=== PATIENT | male | born 1960 | race Caucasian/White ===

== ENCOUNTER 2016-12-10 00:36 | Inpatient (IN) | payer OTHER ==
[~2016-12-10] VITALS: Ht 162.6 cm; Wt 56.4 kg
--- NOTE | 2016-12-10 00:40 | NUR ---
55YO MALE TO RM 2 VIA AMB FROM HOME W/CO SOB X 1 WEEK. STATES NO RELIEF FROM HIS INHALER. UPON EMS ARRIVAL O2 SAT = 80'S. ENROUTE TO ER, JPT WAS GIVEN 1 DUONEB AND 125MG IV SOLUMEDROL.
--- NOTE | 2016-12-10 00:41 | ED DYSPNEA/ASTHMA COMPLAINT ---
History of Present Illness General Chief Complaint: Dyspnea (COPD, CHF, Other) Stated Complaint: DIFF BREATHING Source: patient Exam Limitations: no limitations Vital Signs & Intake/Output Vital Signs & Intake/Output Vital Signs Date Time Temp Pulse Resp B/P B/P Pulse O2 O2 Flow FiO2 Mean Ox Delivery Rate 12/10 0059 96 Nasal 4.0L Cannula 12/10 0045 96 Aerosol 6.0L Mask 12/10 0040 95.6 94 16 130/87 96 Aerosol 6.0L Mask Allergies Coded Allergies: iodine (Severe, HIVES 12/10/16) Penicillins (Intermediate, RASH 12/10/16) Reconcile Medications Albuterol Sulfate (Proventil Hfa) 90 MCG HFA.AER.AD 2 PUF INH Q4 ASTHMA ( Reported) Triage Nurses Notes Reviewed? yes Onset: Gradual Duration: day(s):, getting worse Timing: recent history Severity: moderate Activities at Onset: none Prior Episodes/Possible Cause: no prior episodes Modifying Factors: Improves With: rest. Associated Symptoms: cough, wheezing HPI: 55yo gentleman h/o copd, h/o cigarette smoking presents with cough, wheezing, productive of phlegm, "that I can't get up," for the past 7 days. He states that it was worse today and called 911. The medics found him hypoxic to the 80's, tripoding, breathless. He received a duo neb and solumedrol 125mg iv in the field. Past History Travel History Traveled to [place] past 21 day No Medical History Any Pertinent Medical History? see below for history Respiratory: asthma, COPD Surgical History Surgical History: none Psychosocial History What is your primary language Nigerian Family History Hx Contributory? No Review of Systems Review of Systems Constitutional: Reports: no symptoms. EENTM: Reports: no symptoms. Respiratory: Reports: no symptoms. Cardiovascular: Reports: no symptoms. GI: Reports: no symptoms. Genitourinary: Reports: no symptoms. Musculoskeletal: Reports: no symptoms. Skin: Reports: no symptoms. Neurological/Psychological: Reports: no symptoms. Hematologic/Endocrine: Reports: no symptoms. Immunologic/Allergic: Reports: no symptoms. All Other Systems: Reviewed and Negative Physical Exam Physical Exam General Appearance: well developed/nourished, mild distress, moderate distress Head: atraumatic, normal appearance Eyes: Bilateral: normal appearance. Ears, Nose, Throat: normal pharynx, normal ENT inspection Neck: normal inspection, supple, full range of motion Respiratory: wheezing, respiratory distress Cardiovascular: regular rate/rhythm Gastrointestinal: normal bowel sounds, soft, non-tender Extremities: normal inspection Neurologic/Psych: no motor/sensory deficits, awake, alert, oriented x 3 Skin: intact, normal color, warm/dry Core Measures ACS in differential dx? No Severe Sepsis Present: No Septic Shock Present: No Progress Differential Diagnosis: asthma, bronchitis, CHF, COPD, pneumonia Plan of Care: Orders Procedure Date/time Status Nothing by Mouth 12/10 B Active Saline Lock 12/10 209 Active Misc Message 12/10 209 Active ED Holding Orders 12/10 209 Active Vital Signs 12/10 209 Active Code Status 12/10 209 Active Admit to inpatient 12/10 208 Active BLOOD CULTURE 12/10 114 Active BLOOD CULTURE 12/11 111 Active TROPONIN LEVEL 12/10 40 Complete COMPREHENSIVE METABOLIC PANEL 12/10 40 Complete CBC WITHOUT DIFFERENTIAL 12/10 40 Complete EKG 12/10 40 Active Laboratory Tests 12/10/16 0040: Anion Gap 13, Estimated GFR > 60, BUN/Creatinine Ratio 20.0, Glucose 94, Calcium 9.6, Total Bilirubin 0.4, AST 16 L, ALT 31, Alkaline Phosphatase 55, Troponin I < 0.01, Total Protein 7.1, Albumin 4.6, Globulin 2.5, Albumin/Globulin Ratio 1.8 , CBC w Diff NO MAN DIFF REQ, RBC 5.33, MCV 91.4, MCH 31.2 H, RDW 13.3, MPV 8.1 , Gran % 50.1, Lymphocytes % 39.2, Monocytes % 6.0, Eosinophils % 4.0, Basophils % 0.7, Absolute Granulocytes 5.5, Absolute Lymphocytes 4.3 H, Absolute Monocytes 0.7 H, Absolute Eosinophils 0.4, Absolute Basophils 0.1, PUBS MCHC 34.1 Microbiology 12/10 49 BLOOD: Blood Culture - RECD 12/11 39 BLOOD: Blood Culture - RECD Diagnostic Imaging: Viewed by Me: Radiology Read. Discussed w/RAD: Radiology Read. Radiology Impression: cxr... hazy right mid lung opacity... suspicious for pneuomnia... full report below. Initial ED EKG: normal axis, normal intervals, normal p-waves, normal QRS complex, normal sinus rhythm Comments: PATIENT: ANU YAN PRESENT AGE: 55 PATIENT ACCOUNT NO: [id number] : 62 LOCATION: [facility] ([facility] ORDERING PHYSICIAN: OLIVA DUPONT MD SERVICE DATE: 12/10/16 EXAM TYPE: RAD - XRY-PORTABLE CHEST XRAY EXAMINATION: XR PORTABLE CHEST CLINICAL INFORMATION: Dyspnea COMPARISON: 08/09/2013 TECHNIQUE: Portable frontal view of the chest was obtained. FINDINGS: The lungs are well expanded. No edema or effusion. Hazy opacity at the periphery of the right midlung. No pneumothorax. The cardiomediastinal silhouette is within normal limits. No acute osseous abnormality. IMPRESSION: Hazy peripheral right midlung opacity suspicious for pneumonia. Follow-up to resolution to exclude an underlying mass. DICTATED BY: PAVITHRA TELLEZ MD DATE/TIME DICTATED:12/10/16115 JOINER:BROOK DATE/TIME TRANSCRIBED:12/10/16115 CONFIDENTIAL, DO NOT COPY WITHOUT APPROPRIATE AUTHORIZATION. <Electronically signed in Other Vendor System> SIGNED BY: ROSALINDA JARAMILLO,PAVITHRA 12/10 0120 Departure Departure Disposition: STILL A PATIENT Condition: Stable Clinical Impression Primary Impression: COPD exacerbation Secondary Impressions: Pneumonia, Sepsis Referrals: PATIENT HAS NO PRIMARY CARE DR (PCP/Family) Departure Forms: Customer Survey General Discharge Information Admission Note Spoke With: ARACELI JARAMILLO,[facility] Documentation of Exam: Documentation of any treatments & extenuating circumstances including Concerns Regarding Discharge (functional status, medication knowledge or non-compliance, living conditions, etc.) that warrant an admission rather than observation: pt hypoxic to 80's, with tachypnea, tripoding in the field, meets criteria for sepsis. pt merits iv abx, iv steroids, nebs, 02 support. pt received solumedrol iv in the field. Critical Care Note Critical Care Note Critical Care Time: 30-74 min
--- NOTE | 2016-12-10 00:50 | NUR ---
RESP TX GIVEN BY RT
--- NOTE | 2016-12-10 01:05 | NUR ---
AFTER COMPLETION OF RESPTX PT PLACED ON 4L NASAL O2
[2016-12-10] MEDS ORDERED: PROVENTIL HFA6.7 GM INH (01:07)
[2016-12-10 01:20] LABS: ABSOLUTE BASOPHIL COUNT 0.1 /CUMM (0.0-0.2); ABSOLUTE EOSINOPHIL COUNT 0.4 /CUMM (0.0-0.7); ABSOLUTE GRANULOCYTE CT 5.5 /CUMM (1.4-6.5); ABSOLUTE MONOCYTE COUNT 0.7 /CUMM (0.10-0.60); BASOPHIL % 0.7 % (0.0-2.0); GRANULOCYTE % 50.1 % (42.2-75.2); HEMATOCRIT 48.8 % (42-52); MEAN CORPUSCULAR HGB 31.2 PG (27.0-31.0); MEAN CORPUSCULAR HGB CONC 34.1 G/DL (33.0-37.0); MEAN CORPUSCULAR VOLUME 91.4 FL (80.0-94.0); MEAN PLATELET VOLUME 8.1 FL (7.4-10.4); PLATELET COUNT 282 /CUMM (130-400); RBC DISTRIBUTION WIDTH 13.3 % (11.5-14.5); RED BLOOD CELL CT 5.33 /CUMM (4.70-6.10); WHITE BLOOD CELL COUNT 11.1 /CUMM (4.8-10.8)
--- NOTE | 2016-12-10 01:20 | RADIOLOGY REPORT ---
EXAMINATION: XR PORTABLE CHEST CLINICAL INFORMATION: Dyspnea COMPARISON: 08/09/2013 TECHNIQUE: Portable frontal view of the chest was obtained. FINDINGS: The lungs are well expanded. No edema or effusion. Hazy opacity at the periphery of the right midlung. No pneumothorax. The cardiomediastinal silhouette is within normal limits. No acute osseous abnormality. IMPRESSION: Hazy peripheral right midlung opacity suspicious for pneumonia. Follow-up to resolution to exclude an underlying mass.
[2016-12-10 01:21] LABS: ABSOLUTE LYMPH COUNT 4.3 /CUMM (1.2-3.4)
--- NOTE | 2016-12-10 02:40 | NUR ---
O2 SAT ON 4L = 97 O2 DECREASED TO 3L AT THIS TIME.
--- NOTE | 2016-12-10 03:03 | NUR ---
MOODY CORONADOF HERE TO [facility]
--- NOTE | 2016-12-10 03:25 | Admission Certification ---
Admission Certification Certification Statement - As attending physician, I certify that at the time of - admission, based on clinical presentation, severity of - symptoms, need for further diagnostic testing and - therapeutic interventions, and risk of adverse outcomes - without in-hospital treatment, in my clinical assessment, - this patient requires an acute hospital stay for a minimum - of two nights or longer. I have also considered psychsocial - factors such as support system, advanced age, financial - issues, cognitive issues, and failed out-patient treatments, - past re-admission history, safety of patient, and lack of - compliance as applicable. Specific rationale supporting this admission is: Acute hypoxic respiratory failure, COPD exacerbation, community acquired pneumonia.
--- NOTE | 2016-12-10 03:29 | NUR ---
BED 173
--- NOTE | 2016-12-10 03:42 | History & Physical ---
SHERYL BECERRIL 12/10/16 0342: General Information and HPI History of Present Illness: Mr. Griffith is a 55-year-old gentleman with significant past medical history of emphysema [diagnosed 4 years ago at a walk-in clinic] not on any medications, no home oxygen, who presents to [facility] emergency department with complaints of dyspnea. He states that it started yesterday and progressively worsened in the evening at which point he decided to come to the emergency department. He states this is similar to his previous exacerbation approximately 4 years ago , which woke him up from his sleep. He states he is not seen a doctor in many years. He does not have a primary care physician. At lab of interview, the patient had received TRC/nebs and steroids/ceftriaxone/ azithromycin. He states he felt much better. His O2 requirement decreased significantly. In addition to his dyspnea, he complained of a dry cough, however states that this has been going on for one year on and off. He also admits to 1 week of itchy eyes as well as runny nose. Social history positive for half a pack smoking history 20 years. No alcohol. No illicit drug use. Family history, emphysema and his mom passed at 72 years old. Blood clot secondary to replacement in his father [ at 48]. He is allergic to penicillin and develops hives with exposure. Vitals on admission temperature 95.6, pulse rate 94, respiratory rate 16, 130/87 , saturating 96% on 6 L of oxygen via nasal cannula. Physical exam positive for age-appropriate appearing man lying comfortably in bed in no acute distress. HEENT exam positive for dry mucous membranes. Heart exam unremarkable. Chest exam positive for slightly decreased air entry bilaterally. No wheezes, rhonchi or rales appreciated. Abdominal and lower extremity exam benign. CBC revealed white blood cell count of 11.1, H&H 16.6/48.8, platelets 282. BEP unremarkable. LFTs within normal limits. Troponin <0.01. Chest x-ray did reveal a right midlung opacity, questionable underlying mass. EKG revealed sinus rhythm at 95 bpm, UT interval 176, UTC 453, axis at +60. Allergies/Medications Allergies: Coded Allergies: iodine (Severe, HIVES 12/10/16) Penicillins (Intermediate, RASH 12/10/16) Home Med list Albuterol Sulfate (Proventil Hfa) 90 MCG HFA.AER.AD 2 PUF INH Q4 ASTHMA ( Reported) Past History Travel History Traveled to [place] past 21 day No Medical History Respiratory: COPD Surgical History Surgical History: none Past Family/Social History Family History Relations & Conditions if any MOTHER (FATHER ( at 42, knee replacement complicated by blood clot.). Psychosocial History Where do you live? Home Who Do You Live With? brother Smoking Status: Current Everyday Smoker (1/2 PPD) ETOH Use: denies use Illicit Drug Use: denies illicit drug use Functional Ability ADLs Independent: dressing, eating, toileting, bathing. Ambulation: independent IADLs Independent: shopping, housework, finances, food prep, telephone, transportation , medication admin. Review of Systems Review of Systems Constitutional: Reports: see HPI. Cardiovascular: Denies: chest pain, edema, orthopena, palpitations. Respiratory: Reports: cough, short of breath. Denies: hemoptysis, orthopnea, sputum production, stridor, wheezing. GI: Denies: abdominal pain, bloating, constipation, diarrhea, bloody stool, vomiting. Genitourinary: Denies: discharge, dysuria, frequency, hematuria. Immunologic/Allergic: Denies: no symptoms, splenectomy, HIV/AIDS, lymphadenopathy. Exam & Diagnostic Data Last 24 Hrs of Vital Signs/I&O Vital Signs Date Time Temp Pulse Resp B/P B/P Pulse O2 O2 Flow FiO2 Mean Ox Delivery Rate 12/10 0240 84 20 126/72 94 Nasal 3.0L Cannula 12/10 0059 96 Nasal 4.0L Cannula 12/10 0045 96 Aerosol 6.0L Mask 12/10 0040 95.6 94 16 130/87 96 Aerosol 6.0L Mask Intake & Output 12/10 0800 12/10 0000 12/09 1600 Intake Total 350 Output Total Balance 350 Intake, IV 350 Patient 72.575 kg Weight Physical Exam General Appearance Alert, Oriented X3, Cooperative, No Acute Distress Skin Temp/Moisture Exam: Warm/Dry HEENT Atraumatic, PERRLA, dry mucus membranes Cardiovascular Regular Rate, Normal S1, Normal S2, No Murmurs Lungs Clear to Auscultation, decreased air entry Abdomen Normal Bowel Sounds, Soft, No Tenderness Extremities No Clubbing, No Cyanosis, No Edema, No Tenderness/Swelling Diagnostic Data EKG Results SR @ 95, UT 175ms, QTc 453 ms. [place] +60 CXR Results R midlung opacity - ?underlying mass. Assessment/Plan Assessment: Mr. Griffith is a 55-year-old gentleman with significant past medical history of emphysema [diagnosed 4 years ago at a walk-in clinic] not on any medications, no home oxygen, who presents to [facility] emergency department with complaints of dyspnea. CBC revealed white blood cell count of 11.1, H&H 16.6/48.8, platelets 282. BEP unremarkable. LFTs within normal limits. Troponin <0.01. Chest x-ray did reveal a right midlung opacity, questionable underlying mass. EKG revealed sinus rhythm at 95 bpm, UT interval 176, UTC 453, axis at +60. Problem list assessment and plan Acute on chronic COPD exacerbation vs CAP. * Admit to for IV steroids and IV ABx * CURB 65 score = 0 but patient did receive IV Solu-Medrol en route to the emergency department. Pt recieved Combivent, Zithromax and ceftriaxone in the emergency department. * We will also get urinary strep/legionella antigens as well as LRC and blood Cx * We will continue IV Solu-Medrol 40 mg every 8 hours, as well as 1 g of ceftriaxone daily as well as 500 mg of azithromycin daily * The patient does not improve, spikes a fever consider CAT scan of the chest as he does have a significant smoking history and this could be postobstructive pneumonia. Regular diet Full code lovenox for dvt ppx pain path As Ranked By This Provider Problem List: 1. Pneumonia 2. COPD exacerbation Core Measures/Miscellaneous Acute Coronary Syndrome ACS Diagnosis: No Cerebrovascular Accident CVA/TIA Diagnosis: No Congestive Heart Failure CHF Diagnosis: No Venous Thromboembolism VTE Risk Factors: Age > 40 [facility] prophylaxis d/t: No contraindications No VTE Pharm Prophylaxis d/t: No contraindications VTE Diagnosis: No VTE Type: NONE VTE Confirmed by (Test): NONE Severe Sepsis Severe Sepsis Present: No Septic Shock Septic Shock Present: No Miscellaneous Documentation Attending Case Discussed With: SONIYA CHARLES MD Primary Care Physician: PATIENT HAS NO PRIMARY CARE DR Patient sees these Specialists na Level of Patient Care: General Medicine RYAN CHARLES MD 12/10/16 0446: Attending MD Review Statement Attending Statement Attending MD Statement: examined this patient, discuss w/resident/PA/REWRITE EDITOR, agreed w/resident/PA/REWRITE EDITOR Attending Assessment/Plan: 55 yo M current everyday smoker, with possible underlying COPD (no definitive diagnosis), is brought in c/o progressively worse dyspnea, chronic intermittent cough with inability to bring up phlegm and wheezing. This was preceded by allergies/ rhinorrhea/ itchy eyes in the last week. Denies fever/chills. Reports good appetite, no weight loss. Medics found him to be hypoxic to 80's, tripoding , tachypneic. He received duoneb and solumedrol by EMS. Patient reports being told that he has emphysema about 4 yrs ago when he was seen at a walk in clinic. Vitals: afebrile, HR 94, BP 130/87, sats 96% on 6L. Exam: AAO, mild respiratory distress, able to speak in full sentences, unkempt male. Dry mucous membranes. Chest b/l reduced air entry, scattered wheeze, no rhonchi. Heart S1S2 regular. Abd soft, NT. Labs: WBC 11.1, trop neg. CXR: hazy peripheral right midlung opacity suspicious for pneumonia. EKG: SR. 1. Acute hypoxic respiratory failure, COPD exacerbation and community acquired pneumonia. GM admit, TRC nebs, sputum and blood culture, IV steroids, mucinex BID, continue ceftriaxone and azithro. Gentle IV hydration. Taper O2 to keep sats > 92%. If his symptoms do not improve, he may benefit from a CT chest to assess for lung nodules/ mass and eventual Pulm eval for outpatient PFTs, follow up. Smoking cessation counseling, nicotine patch. DVT ppx Lovenox. Full code.
[2016-12-10 04:34] VITALS: BP 118/74
--- NOTE | 2016-12-10 07:36 | PN- Housestaff ---
Subjective Follow-up For: - TIA Review of Systems Constitutional: Reports: see HPI. Objective Last 24 Hrs of Vital Signs/I&O Vital Signs Date Time Temp Pulse Resp B/P B/P Pulse O2 O2 Flow FiO2 Mean Ox Delivery Rate 12/10 0434 98.0 78 20 118/74 91 Nasal 2.0L Cannula 12/10 0240 84 20 126/72 94 Nasal 3.0L Cannula 12/10 0059 96 Nasal 4.0L Cannula 12/10 0045 96 Aerosol 6.0L Mask 12/10 0040 95.6 94 16 130/87 96 Aerosol 6.0L Mask Intake & Output 12/10 0800 12/10 0000 12/09 1600 Intake Total 350 Output Total 300 Balance 50 Intake, IV 350 Output, Urine 300 Patient 160 lb Weight Physical Exam General Appearance: No Acute Distress
[2016-12-10 08:31] VITALS: BP 94/64
[2016-12-10 09:03] LABS: ABSOLUTE BASOPHIL COUNT 0 /CUMM (0.0-0.2); ABSOLUTE EOSINOPHIL COUNT 0 /CUMM (0.0-0.7); ABSOLUTE GRANULOCYTE CT 9.2 /CUMM (1.4-6.5); ABSOLUTE LYMPH COUNT 0.7 /CUMM (1.2-3.4); ABSOLUTE MONOCYTE COUNT 0 /CUMM (0.10-0.60); BASOPHIL % 0 % (0.0-2.0); EOSINOPHIL % 0 % (0-5); HEMATOCRIT 44.5 % (42-52); MEAN CORPUSCULAR HGB CONC 33.7 G/DL (33.0-37.0); MEAN CORPUSCULAR VOLUME 92.1 FL (80.0-94.0); MEAN PLATELET VOLUME 7.9 FL (7.4-10.4); PLATELET COUNT 251 /CUMM (130-400); RBC DISTRIBUTION WIDTH 13.2 % (11.5-14.5); RED BLOOD CELL CT 4.83 /CUMM (4.70-6.10)
[2016-12-10 09:14] LABS: GRANULOCYTE % 92.9 % (42.2-75.2)
[2016-12-10 09:42] LABS: WHITE BLOOD CELL COUNT 9.9 /CUMM (4.8-10.8)
--- NOTE | 2016-12-10 09:43 | PN- Housestaff ---
HIRAM ARGUETA 12/10/16 0939: Subjective Follow-up For: Acute hypoxemic respiratory failure most likely secondary to COPD exacerbation and CAP Subjective: No overnight events. This morning patient is feeling better. He is on 3 L of oxygen via nasal cannula saturating 92%. He is still having dry cough. Denies any fever, chills, chest pain or discomfort. Review of Systems Constitutional: Reports: see HPI. Objective Last 24 Hrs of Vital Signs/I&O Vital Signs Date Time Temp Pulse Resp B/P B/P Pulse O2 O2 Flow FiO2 Mean Ox Delivery Rate 12/10 0948 Nasal 2.0L Cannula 12/10 0831 98.1 82 20 94/64 92 Nasal 3.0L Cannula 12/10 0434 98.0 78 20 118/74 91 Nasal 2.0L Cannula 12/10 0240 84 20 126/72 94 Nasal 3.0L Cannula 12/10 0059 96 Nasal 4.0L Cannula 12/10 0045 96 Aerosol 6.0L Mask 12/10 0040 95.6 94 16 130/87 96 Aerosol 6.0L Mask Intake & Output 12/10 1600 12/10 0800 12/10 0000 Intake Total 350 Output Total 300 Balance 50 Intake, IV 350 Output, Urine 300 Patient 160 lb Weight Physical Exam General Appearance: Alert, Oriented X3, Cooperative, No Acute Distress Cardiovascular: Regular Rate Lungs: decreased air entry on both sides Abdomen: Normal Bowel Sounds, Soft, No Tenderness Current Medications: Current Medications Sig/Manish Start time Last Medication Dose Route Stop Time Status Admin Acetaminophen 650 MG Q6P PRN 12/10 0430 AC PO Acetaminophen 1,000 MG Q6P PRN 12/10 0430 AC IV Albuterol Sulfate 2 PUF Q4P PRN 12/10 0845 AC INH Albuterol Sulfate 3 ML ONCE ONE 12/10 44 DC 12/10 INH 12/10 0046 0059 Azithromycin 500 MG 12/10 AC Sodium Chloride 250 ML IV Azithromycin 500 MG ONCE ONE 12/10 44 DC 12/10 Sodium Chloride 250 ML IV 12/10 0144 0135 Ceftriaxone Sodium 1,000 MG 12/10 AC IV Ceftriaxone Sodium 0 .STK-MED ONE 12/10 0117 DC .ROUTE Ceftriaxone Sodium 1,000 MG ONCE ONE 12/105 DC 12/10 IV 12/10 0046 0120 Enoxaparin Sodium 40 MG DAILY 12/10 1000 AC 12/10 SC 0938 Guaifenesin 600 MG Q12 12/10 1000 AC 12/10 PO 0937 Ipratropium Watson 2.5 ML ONCE ONE 12/10 0045 DC 12/10 INH 12/10 0046 0059 Methylprednisolone 40 MG Q12 12/10 1000 UNVr IV Methylprednisolone 40 MG Q8 12/10 0639 DC 12/10 IV 0937 Nicotine 21 MG DAILY 12/10 1000 AC 12/10 TOP 0937 Oxycodone HCl 5 MG Q6P PRN 12/10 0430 AC PO Last 24 Hrs of Lab/Darwin Results Last 24 Hrs of Labs/Mics: Laboratory Tests 12/10/16 0747: CBC w Diff NO MAN DIFF REQ, RBC 4.83, MCV 92.1, MCH 31.0, RDW 13.2, MPV 7.9, Gran % 92.9 H, Lymphocytes % 6.7 L, Monocytes % 0.4 L, Eosinophils % 0, Basophils % 0 L, Absolute Granulocytes 9.2 H, Absolute Lymphocytes 0.7 L, Absolute Monocytes 0 L, Absolute Eosinophils 0, Absolute Basophils 0, PUBS MCHC 33.7 12/10/16 0040: Anion Gap 13, Estimated GFR > 60, BUN/Creatinine Ratio 20.0, Glucose 94, Calcium 9.6, Total Bilirubin 0.4, AST 16 L, ALT 31, Alkaline Phosphatase 55, Troponin I < 0.01, Total Protein 7.1, Albumin 4.6, Globulin 2.5, Albumin/Globulin Ratio 1.8 , CBC w Diff NO MAN DIFF REQ, RBC 5.33, MCV 91.4, MCH 31.2 H, RDW 13.3, MPV 8.1 , Gran % 50.1, Lymphocytes % 39.2, Monocytes % 6.0, Eosinophils % 4.0, Basophils % 0.7, Absolute Granulocytes 5.5, Absolute Lymphocytes 4.3 H, Absolute Monocytes 0.7 H, Absolute Eosinophils 0.4, Absolute Basophils 0.1, PUBS MCHC 34.1 Microbiology 12/11 643 URINE ROUT: Legionella Antigen - ORD 12/11 643 URINE ROUT: Streptococcus pneumoniae Antigen (M - ORD 12/10 641 LOWER RESP: Respiratory Culture - ORD 12/10 641 LOWER RESP: Gram Stain - ORD 04/27 0050 BLOOD: Blood Culture - RECD 12/11 39 BLOOD: Blood Culture - RECD Assessment/Plan Assessment: He is 55-year-old man with past medical history of ? COPD (not diagnosed officially) and current every day smoker, smoking half pack per day since age of 18. He is being admitted on general medicine floor for: Problem list 1. Acute hypoxemic respiratory failure secondary to COPD exacerbation. Chest x -ray also suggestive of pneumonia. He was initially on 6 L of oxygen. Her now on 3 L. Feeling better. * Continue supplemental oxygen and keep oxygen saturation more than 92% * Continue IV steroids and antibiotics * Continue TRC nebs * Follow-up blood and sputum cultures. Urinary antigen for Legionella and strep pneumo * CT chest if breathing does not improve * Outpatient pulmonology referral for official pulmonary function tests 2. Tobacco dependence. Smokes half pack per day since age of 18. * Nicotine patch * Smoking cessation counseling * [facility] cancer screening program enrollment as an outpatient 3. Patient does not have any insurance and primary care provider. * Case management consult * [facility] practice referral upon discharge Subcutaneous Lovenox for DVT prophylaxis Regular diet Pain management pathway Full code Problem List: 1. Pneumonia 2. Bronchitis Pain Ratin Pain Location: none Pain Goal: Remain pain free Pain Plan: tylenol Tomorrow's Labs & Rationales: none DVT/Prophylaxis: pharmacological VANNA JARAMILLO,LALIT 12/10/16 1249: Attending MD Review Statement Attending Statement Attending MD Statement: examined this patient, discuss w/resident/PA/LADLE CLEANER, agreed w/resident/PA/LADLE CLEANER, reviewed EMR data (avail), discussed with nursing, reviewed images, amended to note Attending Assessment/Plan: Patient seen and examined, feeling better this morning. Requiring less oxygen and feeling less short of breath. Vital Signs Date Time Temp Pulse Resp B/P B/P Pulse O2 O2 Flow FiO2 Mean Ox Delivery Rate 12/10 0948 Nasal 2.0L Cannula 12/10 0831 98.1 82 20 94/64 92 Nasal 3.0L Cannula 12/10 0800 Nasal 2.0L Cannula 12/10 0434 98.0 78 20 118/74 91 Nasal 2.0L Cannula 12/10 0240 84 20 126/72 94 Nasal 3.0L Cannula 12/10 0059 96 Nasal 4.0L Cannula 12/10 0045 96 Aerosol 6.0L Mask 12/10 004 95.6 94 16 130/87 96 Aerosol 6.0L Mask on exam; aox3, nad cv; s1, s2, rrr resp; decresaed bs overall, bs+ abd; soft, nt, bs+ ext; no edema. Laboratory Tests 12/10 12/10 0747 0040 Chemistry Sodium (137 - 145 mmol/L) 145 Potassium (3.5 - 5.1 mmol/L) 4.4 Chloride (98 - 107 mmol/L) 105 Carbon Dioxide (22 - 30 mmol/L) 27 Anion Gap (5 - 16) 13 BUN (9 - 20 mg/dL) 18 Creatinine (0.7 - 1.2 mg/dL) 0.9 Estimated GFR (>60 ml/min) > 60 BUN/Creatinine Ratio (7 - 25 %) 20.0 Glucose (65 - 99 mg/dL) 94 Calcium (8.4 - 10.2 mg/dL) 9.6 Total Bilirubin (0.2 - 1.3 mg/dL) 0.4 AST (17 - 59 U/L) 16 L ALT (21 - 72 U/L) 31 Alkaline Phosphatase (< 127 U/L) 55 Troponin I (<0.11 ng/ml) < 0.01 Total Protein (6.3 - 8.2 g/dL) 7.1 Albumin (3.5 - 5.0 g/dL) 4.6 Globulin (1.9 - 4.2 gm/dL) 2.5 Albumin/Globulin Ratio (1.1 - 2.2 %) 1.8 Hematology CBC w Diff NO MAN DIFF REQ NO MAN DIFF REQ WBC (4.8 - 10.8 /CUMM) 9.9 11.1 H RBC (4.70 - 6.10 /CUMM) 4.83 5.33 Hgb (14.0 - 18.0 G/DL) 15.0 16.6 Hct (42 - 52 %) 44.5 48.8 MCV (80.0 - 94.0 FL) 92.1 91.4 MCH (27.0 - 31.0 PG) 31.0 31.2 H RDW (11.5 - 14.5 %) 13.2 13.3 Plt Count (130 - 400 /CUMM) 251 282 MPV (7.4 - 10.4 FL) 7.9 8.1 Gran % (42.2 - 75.2 %) 92.9 H 50.1 Lymphocytes % (20.5 - 51.1 %) 6.7 L 39.2 Monocytes % (1.7 - 9.3 %) 0.4 L 6.0 Eosinophils % (0 - 5 %) 0 4.0 Basophils % (0.0 - 2.0 %) 0 L 0.7 Absolute Granulocytes (1.4 - 6.5 /CUMM) 9.2 H 5.5 Absolute Lymphocytes (1.2 - 3.4 /CUMM) 0.7 L 4.3 H Absolute Monocytes (0.10 - 0.60 /CUMM) 0 L 0.7 H Absolute Eosinophils (0.0 - 0.7 /CUMM) 0 0.4 Absolute Basophils (0.0 - 0.2 /CUMM) 0 0.1 PUBS MCHC (33.0 - 37.0 G/DL) 33.7 34.1 A/P; 55 yo M current everyday smoker, with possible underlying COPD (no definitive diagnosis) who was admitted with the possible required pneumonia as well as acute COPD exacerbation with hypoxia. Continue current antibiotics and follow-up on culture. Sputum culture has been ordered but has not been received. Please make sure that in sputum culture is sent. Agree with decreasing IV steroids to every 12 today. Continue TRC nebs. Please talk to case management about consulting insurance allegedly the specialist as patient would benefit by following up with her primary care doctor as well as using inhalers as an outpatient. DVT prophylaxis: Lovenox. We will try to taper the oxygen as he can tolerate.
--- NOTE | 2016-12-10 15:50 | Patient Discharge Instructions ---
Discharge Instructions General Discharge Information You were seen/treated for: COPD, PNEUMONIA Diet Continue normal diet: Yes Activity Full Activity/No Limits: No Acute Coronary Syndrome Inclusion Criteria At DC or during hospital stay patient has or had the following: ACS DIAGNOSIS No Discharge Core Measures Meds if any: Prescribed or Continued at Discharge Meds if any: NOT Prescribed or Continued at Discharge Congestive Heart Failure Inclusion Criteria At DC or during hospital stay patient has or had the following: CHF DIAGNOSIS No Discharge Core Measures Meds if any: Prescribed or Continued at Discharge Meds if any: NOT Prescribed or Continued at Discharge Cerebrovascular accident Inclusion Criteria At DC or during hospital stay patient has or had the following: CVA/TIA Diagnosis No Discharge Core Measures Meds if any: Prescribed or Continued at Discharge Meds if any: NOT Prescribed or Continued at Discharge Venous thromboembolism Inclusion Criteria VTE Diagnosis No VTE Type NONE VTE Confirmed by (Test) NONE Discharge Core Measures - Per Current guidelines, there needs to be overlap - treatment for the first 5 days of Warfarin therapy. - If discharged on Warfarin prior to 5 days of - overlap therapy, the patient will need to be - assessed for post discharge needs including - *Post discharge parental anticoagulation - *Warfarin and/or parental anticoagulation education - *Follow up date to check INR post discharge At least 5 days overlap therapy as Inpatient No Meds if any: Prescribed or Continued at Discharge Note: Overlap Therapy is Warfarin and Anticoagulant Meds if any: NOT Prescribed or Continued at Discharge
[2016-12-10 17:00] VITALS: BP 110/62
[2016-12-11 00:17] VITALS: BP 100/68
[2016-12-11 07:55] VITALS: BP 94/64
--- NOTE | 2016-12-11 09:05 | PN- Housestaff ---
HIRAM ARGUETA 12/11/16 0852: Subjective Follow-up For: Acute hypoxemic respiratory failure most likely secondary to COPD exacerbation and CAP Subjective: No overnight events. This morning patient is alert, awake and oriented. He is on 2 L of oxygen via nasal cannula and oxygen saturation is 92%. His feeding little better. Denies any chest pain or discomfort. Review of Systems Constitutional: Reports: see HPI. Objective Last 24 Hrs of Vital Signs/I&O Vital Signs Date Time Temp Pulse Resp B/P B/P Pulse O2 O2 Flow FiO2 Mean Ox Delivery Rate 12/11 0755 98.3 84 20 94/64 92 Nasal 2.5L Cannula 12/11 0017 98.2 78 12 100/68 92 12/11 0000 96 Nasal 2.0L Cannula 12/10 1700 97.9 80 20 110/62 92 12/10 1600 94 Nasal 2.0L Cannula 12/10 0948 Nasal 2.0L Cannula Intake & Output 12/11 1600 12/11 0800 12/11 0000 Intake Total 240 530 Output Total Balance 240 530 Intake, IV 30 Intake, Oral 240 500 Physical Exam General Appearance: Alert, Oriented X3, Cooperative, No Acute Distress Cardiovascular: Regular Rate, No Murmurs Lungs: decreased air entry bilaterally Abdomen: Normal Bowel Sounds, Soft, No Tenderness Neurological: Normal Speech, Strength at 5/5 X4 Ext, Sensation Intact, Cranial Nerves 3-12 NL Extremities: No Edema Current Medications: Current Medications Sig/Manish Start time Last Medication Dose Route Stop Time Status Admin Acetaminophen 650 MG Q6P PRN 12/10 0430 AC PO Acetaminophen 1,000 MG Q6P PRN 12/10 0430 DC IV Albuterol Sulfate 2 PUF Q4P PRN 12/10 0845 AC INH Amoxicillin/ 875 MG Q12 12/11 1000 UNVr Clavulanate Potassium PO Azithromycin 500 MG 12/100 DC 12/10 Sodium Chloride 250 ML IV 2152 Ceftriaxone Sodium 1,000 MG 12/10 2200 DC 12/10 IV 2153 Enoxaparin Sodium 40 MG DAILY 12/10 1000 AC 12/10 SC 0938 Guaifenesin 600 MG Q12 12/10 1000 AC 12/10 PO 2153 Methylprednisolone 40 MG Q12 12/10 1000 DC 12/10 IV 2153 Methylprednisolone 40 MG Q8 12/10 0639 DC 12/10 IV 0937 Nicotine 21 MG DAILY 12/10 1000 AC 12/10 TOP 0937 Oxycodone HCl 5 MG Q6P PRN 12/10 0430 DC PO Patient Medication 1 ED .STK-MED ONE 12/10 1415 DC Teaching ED 12/10 1416 Prednisone 40 MG DAILY 12/11 1000 AC PO Ramelteon 8 MG ONCE ONE 12/10 2200 DC 12/10 PO 12/10 2201 2219 Last 24 Hrs of Lab/Darwin Results Last 24 Hrs of Labs/Mics: Microbiology 12/10 1340 URINE ROUT: Legionella Antigen - COMP 12/10 1340 URINE ROUT: Streptococcus pneumoniae Antigen (M - COMP 12/10 1230 LOWER RESP: Respiratory Culture - RES 12/10 1230 LOWER RESP: Gram Stain - RES Assessment/Plan Assessment: He is 55-year-old man with past medical history of ? COPD (not diagnosed officially) and current every day smoker, smoking half pack per day since age of 18. He is being admitted on general medicine floor for: Problem list 1. Acute hypoxemic respiratory failure secondary to COPD exacerbation and community-acquired pneumonia * Still requiring oxygen. On 2 L of oxygen right now. Oxygen saturation 92% at rest * Switched IV steroids and antibiotics to by mouth * Sputum culture growing gram-negative rods. We will follow identification and sensitivities * Incentive spirometry 2. Tobacco dependence * Nicotine patch 3. No insurance and primary care provider * Case management on board. Per case management it's difficult for the patient to get insurance soon so it's better to wean him off oxygen otherwise he has to pay for that. Subcutaneous Lovenox for DVT prophylaxis Regular diet Pain management pathway Full code Problem List: 1. Pneumonia 2. Bronchitis Pain Ratin Pain Location: none Pain Goal: Remain pain free Pain Plan: Tylenol Tomorrow's Labs & Rationales: None DVT/Prophylaxis: pharmacological VANNA JARAMILLO,LALIT 12/11/16 1039: Attending MD Review Statement Attending Statement Attending MD Statement: examined this patient, discuss w/resident/PA/ANODIC TREATER, agreed w/resident/PA/ANODIC TREATER, reviewed EMR data (avail), discussed with nursing, discussed with case mgmt, reviewed images, amended to note Attending Assessment/Plan: Patient and examined, feeling slightly better today. Still requiring oxygen. He said that he is not wheezing and he is able to get up and walk to the bathroom. Vital Signs Date Time Temp Pulse Resp B/P B/P Pulse O2 O2 Flow FiO2 Mean Ox Delivery Rate 12/11 0800 94 Nasal 2.0L Cannula 12/11 0755 98.3 84 20 94/64 92 Nasal 2.5L Cannula 12/11 0017 98.2 78 12 100/68 92 12/11 0000 96 Nasal 2.0L Cannula 12/10 1700 97.9 80 20 110/62 92 12/10 1600 94 Nasal 2.0L Cannula on exam; aox3, nad. cv; s1,s2, rrr resp; decreased bs overall. abd; soft, nt, bs+ ext; no edema. no labs today. A/P; 55 yo M current everyday smoker, with possible underlying COPD (no definitive diagnosis) who was admitted with the possible required pneumonia as well as acute COPD exacerbation with hypoxia. Agree with switching steroids to oral as well as antibiotics to oral Ceftin. Sputum culture growing gram-negative rods. We will follow-up on the final culture and sensitivity. Continue TRC nebs and other current meds. Will continue to try to taper his oxygen. Spoke with CM about his need to get insurance. DVT px: lovenox. Dispo: Possible DC this w/e.
[2016-12-11] MEDS ORDERED: CEFUROXIME250 M1 PO (10:41)
[2016-12-11] MEDS ORDERED: PREDNISONE10 M2 PO (12:58)
--- NOTE | 2016-12-11 12:59 | Discharge Summary ---
See Addendum Visit Information Visit Dates Admission Date: 12/10/16 Discharge Date: 12/13/16 Hospital Course Course Attending Physician: LALIT PRABHAKAR MD Primary Care Physician: PATIENT HAS NO PRIMARY CARE DR Hospital Course: 55 year old Man current everyday smoker, with possible underlying COPD (no definitive diagnosis), was brought in ER with c/o progressively worse dyspnea, chronic intermittent cough with inability to bring up phlegm and wheezing. This was preceded by allergies/ rhinorrhea/ itchy eyes in the last week. Denied fever /chills. Medics found him to be hypoxic to 80's, tripoding, tachypneic. He received duoneb and solumedrol by EMS. Vitals: afebrile, HR 94, BP 130/87, sats 96% on 6L. Exam: AAO, mild respiratory distress, able to speak in full sentences. Dry mucous membranes. Chest b/l reduced air entry, scattered wheeze, no rhonchi. Heart S1S2 regular. Abd soft, Non Tender. Labs: WBC 11.1, trop neg. CXR: hazy peripheral right midlung opacity suspicious for pneumonia. EKG: Normal sinus rhythm without acute ST-T wave changes Patient was admitted on general medicine floor for acute hypoxic respiratory failure secondary to proceed and COPD and suspected pneumonia. He was started on ceftriaxone and azithromycin. He was also given IV steroids and nebulization treatment. Respiratory culture grew Klebsiella pneumoniae. As patient was penicillin allergic so later on he was switched to by mouth antibiotics, Ceftin. His respiratory symptoms improved. During the course of hospitalization he also had CT chest without IV contrast. IMPRESSION: 1. No airspace consolidation. Mild focal pleural thickening along the left pleural fissure. 2. Thoracic levoscoliosis and exaggerated kyphosis with associated degenerative changes. Blood culture showed a coag negative staph which was a contaminant. Klebsiella in the sputum was sensitive to cephalosporins and the plan was to discharge him to finish his entire course of antibiotics and prednisone taper. Tobacco cessation counseled at length. He did not have any PCP so he was given a referral for Caryl Maddox MD to follow-up. He was stable on discharge and saturating well on room air. Allergies: Coded Allergies: iodine (Severe, HIVES 12/10/16) Penicillins (Intermediate, RASH 04/27/17) Disposition Summary Disposition Principal Diagnosis: Acute hypoxic respiratory failure presumably secondary to CAP/COPD Additional Diagnosis: none Discharge Disposition: home or self care Discharge Instructions General Discharge Information Code Status: Full Code Patient's Diet: Regular diet Patient's Activity: Independent Follow-Up Instructions/Appts: Please follow-up with Dr. Maddox next week after discharge Medications at Discharge Discharge Medications: Continue taking these medications: Albuterol Sulfate (Proventil Hfa) 90 MCG HFA.AER.AD 2 Puff Inhale through mouth Every 4 hours Comments: Last Taken:NOT GIVEN IN HOSPITAL Time: Start taking the following new medications: Cefuroxime Axetil (Cefuroxime) 250 MG TABLET 2 Tablet ORAL EVERY 12 HOURS Days = 5 No Refills Comments: Last Taken:12/13/16 Time:929 Prednisone (Prednisone) 10 MG TABLET 1 Tablet ORAL See Instructions Qty = 12 No Refills Instructions: 3 TABS DAILY FOR 2 DAYS 2 TABS DAILY FOR 2 DAYS 1 TAB DAILY FOR 2 DAYS Comments: Last Taken:12/13/16 Time:0930 Budesonide/Formoterol Fumarate (Symbicort 160-4.5 Mcg Inhaler) 160 MCG-4.5 MCG/ ACTUATION HFA.AER.AD 2 Puff Inhale through mouth TWICE DAILY Qty = 1 No Refills Comments: Last Taken:NOT GIVEN IN HOSPITAL Time: Budesonide/Formoterol Fumarate (Symbicort 160-4.5 Mcg Inhaler) 160 MCG-4.5 MCG/ ACTUATION HFA.AER.AD 2 Puff Inhale through mouth TWICE DAILY Qty = 1 No Refills Comments: Last Taken:NOT GIVEN IN HOSPITAL Time: Copies To: CARYL MADDOX MD
[2016-12-11] MEDS ORDERED: SYMBICORT 16010.2 GM INH (15:08)
[2016-12-11 16:45] VITALS: BP 102/74
--- NOTE | 2016-12-11 21:52 | NUR ---
TRANSFER NOTE: PT ARRIVED ON FLOOR AT [address] [facility]. PT A&OX3, RA, VSS, AFEBRILE, NO DISTRESS, NO C/O PAIN. #[address] NICOTINE PATCH TO R SHOULDER. RN TRANSFERED MEDS W/PT. PT ORIENTED TO ROOM/FLOOR.
[2016-12-11 22:35] VITALS: BP 102/74
--- NOTE | 2016-12-12 03:12 | Event Note ---
Event Note Event Note: Notified by nursing staff around 2:26 AM that patient grew gram + cocci in clusters in 1/4 bottles of blood cultures. Patient has also grown gram negative rods in his sputum. He is currently on ceftin 500 mg PO Q12. We will await final sensitivities which will likely return tomorrow and continue ceftin for now. Attending physician Dr. Epifanio MD aware and agrees with above plan.
[2016-12-12 06:15] VITALS: BP 100/74
--- NOTE | 2016-12-12 08:27 | History & Physical ---
General Information and HPI Allergies/Medications Allergies: Coded Allergies: iodine (Severe, HIVES 12/10/16) Penicillins (Intermediate, RASH 12/10/16) Home Med list Albuterol Sulfate (Proventil Hfa) 90 MCG HFA.AER.AD 2 PUF INH Q4 ASTHMA ( Reported) Budesonide/Formoterol Fumarate (Symbicort 160-4.5 Mcg Inhaler) 160 MCG-4.5 MCG/ ACTUATION HFA.AER.AD 2 PUF INH BID copd Cefuroxime Axetil (Cefuroxime) 250 MG TABLET 2 TAB PO Q12 PNEUMONIA Prednisone 10 MG TABLET 1 TAB PO SI COPD 3 TABS DAILY FOR 2 DAYS 2 TABS DAILY FOR 2 DAYS 1 TAB DAILY FOR 2 DAYS Past History Travel History Traveled to [place] past 21 day No Medical History Neurological: NONE EENT: NONE Cardiovascular: NONE Respiratory: COPD Gastrointestinal: NONE Hepatic: NONE Renal: NONE Musculoskeletal: NONE Psychiatric: NONE Endocrine: NONE Blood Disorders: NONE Cancer(s): NONE DRILLING FIELD OPERATOR/Reproductive: NONE History of MRSA: No History of VRE: No History of CDIFF: No Isolation History: Standard Surgical History Surgical History: none Past Family/Social History Family History Relations & Conditions if any MOTHER (FATHER ( at 42, knee replacement complicated by blood clot.). Psychosocial History Where do you live? Home Who Do You Live With? brother Smoking Status: Current Everyday Smoker (1/2 PPD) ETOH Use: denies use Illicit Drug Use: denies illicit drug use Functional Ability ADLs Independent: dressing, eating, toileting, bathing. Ambulation: independent IADLs Independent: shopping, housework, finances, food prep, telephone, transportation , medication admin. Exam & Diagnostic Data Diagnostic Data EKG Results SR @ 95, MI 175ms, QTc 453 ms. [place] +60 CXR Results R midlung opacity - ?underlying mass. Core Measures/Miscellaneous Cerebrovascular Accident CVA/TIA Diagnosis: No Severe Sepsis Severe Sepsis Present: No Septic Shock Septic Shock Present: No Miscellaneous Documentation Patient sees these Specialists na Level of Patient Care: General Medicine
--- NOTE | 2016-12-12 08:29 | PN- Housestaff ---
MAGGIE JARAMILLO,FADY 12/12/16 0829: Subjective Follow-up For: Acute hypoxemic respiratory failure most likely secondary to COPD exacerbation and CAP Subjective: Patient seen and examined at bedside. Sitting comfortably in bed with no complaints. Denies any dsypnea. Still has some cough productive of white sputum but it is improving. Currently satting well on RA. Ambulatory sat 94% reportedly. 1/2 bottles positive for GPC reported overnight. Denies any f/c, chest pain, palpitations, dizziness/lightheadedness, abdominal pain, n/v/cd. Review of Systems Constitutional: Reports: see HPI. Objective Last 24 Hrs of Vital Signs/I&O Vital Signs Date Time Temp Pulse Resp B/P B/P Pulse O2 O2 Flow FiO2 Mean Ox Delivery Rate 12/12 0615 97.9 71 20 100/74 94 Room Air 12/12 0000 93 12/11 2235 98.0 69 20 102/74 93 Room Air 12/11 1645 98.0 79 18 102/74 94 Room Air 12/11 1600 94 Room Air Room Air 12/11 1049 20 94 Room Air Room Air 12/11 1048 94 Room Air Room Air 12/11 1047 92 Nasal 1.0L Cannula 12/11 1045 94 Nasal 1.0L Cannula Intake & Output 12/12 1600 12/12 0800 12/12 0000 Intake Total 120 120 Output Total Balance 120 120 Intake, Oral 120 120 Physical Exam General Appearance: Alert, Oriented X3, Cooperative, No Acute Distress Other Physical Findings: Cardiovascular: Regular Rate, No Murmurs Lungs: decreased air entry bilaterally Abdomen: Normal Bowel Sounds, Soft, No Tenderness Neurological: Normal Speech, Strength at 5/5 X4 Ext, Sensation Intact, Cranial Nerves 3-12 NL Extremities: No Edema Current Medications: Current Medications Sig/Manish Start time Last Medication Dose Route Stop Time Status Admin Acetaminophen 650 MG Q6P PRN 12/10 0430 AC PO Albuterol Sulfate 2 PUF Q4P PRN 12/10 0845 AC INH Amoxicillin/ 875 MG Q12 12/11 1000 CAN Clavulanate Potassium PO Azithromycin 500 MG 12/11 CAN Sodium Chloride 250 ML IV Azithromycin 500 MG 12/10 2200 DC 12/10 Sodium Chloride 250 ML IV 2153 Ceftriaxone Sodium 1,000 MG 12/11 CAN IV Ceftriaxone Sodium 1,000 MG 12/10 DC 12/10 IV 2153 Cefuroxime Sodium 250 MG Q12 12/11 1000 DC PO Cefuroxime Sodium 500 MG Q12 12/11 1000 AC 12/11 PO 2218 Enoxaparin Sodium 40 MG DAILY 12/10 1000 AC 12/11 SC 0946 Guaifenesin 600 MG Q12 12/10 1000 AC 12/11 PO 2218 Nicotine 21 MG DAILY 12/10 1000 AC 12/11 TOP 0946 Prednisone 40 MG DAILY 12/11 1000 AC 12/11 PO 0946 Assessment/Plan Assessment: He is 55-year-old man with past medical history of ? COPD (not diagnosed officially) and current every day smoker, smoking half pack per day since age of 18. He is being admitted on general medicine floor for: 1. Acute hypoxemic respiratory failure secondary to COPD exacerbation and community-acquired pneumonia * No longer requiring oxygen. Currently satting well on RA. Ambulatory sat reportedly at 94%. * Cont Ceftin Q12 PO * Sputum culture growing Klebsiella. Sensitivities pending. * CT chest without IV con to r/o underlying lung disease (CT with contrast would be a better test but patient is reportedly allergic to contrast) * Incentive spirometry * 1/2 bottles growing GPC. ID & sensitivities to follow. 2. Tobacco dependence * Nicotine patch 3. No insurance and primary care provider * Case management on board. Per case management it's difficult for the patient to get insurance soon so it's better to wean him off oxygen otherwise he has to pay for that. Subcutaneous Lovenox for DVT prophylaxis Regular diet Pain management pathway Full code Problem List: 1. Bronchitis 2. Encounter for medication refill 3. COPD exacerbation 4. Pneumonia Pain Ratin Pain Location: 0 Pain Goal: Remain pain free Pain Plan: Mild pathway Tomorrow's Labs & Rationales: None GRIS JARAMILLO,VALARIE 12/12/16 1020: Attending MD Review Statement Attending Statement Attending MD Statement: examined this patient, discuss w/resident/PA/SUPERVISOR COMMISSARY PRODUCTION, agreed w/resident/PA/SUPERVISOR COMMISSARY PRODUCTION, reviewed EMR data (avail), discussed with nursing, reviewed images Attending Assessment/Plan: Doing better overall. On by mouth cefuroxime for the possibility of a community -acquired pneumonia. Off note sputum cultures are growing gram-negative rods which is Klebsiella pneumonia. Klebsiella is not part of the usual community- acquired pneumonia pathogen series. Patient is an ongoing smoker with no definitive diagnosis but likely underlying COPD. Given that this is Klebsiella pneumonia which is not a typical community-acquired pneumonia pathogen and the possibility of the lung mass on the chest x-ray I think we should do a CT chest to clarify as this is a gram-negative pneumonia. Clinically he is responding to the cefuroxime so will continue that. I believe the blood culture is a contaminant but will need to watch that closely.
--- NOTE | 2016-12-12 13:55 | Event Note ---
Event Note Event Note: I spoke to patient and explained him the effects of IV contrast and at that point he denied any allergies to the contrast but he did mention that he never received contrast in past. I was then paged from CT scan and was told that patient is refusing the IV contrast as he is afraid of allergic reaction. IV solumedrol and Benadryl were offered but he still persisted with his decision. Will proceed with the CT chest witout contrast at this point to look for any nodules . The yield for lung nodule and any obstruction will be low . This was updated to the patient. Also spoke to [facility] staff in the lab and confimred that Klebsiella growth is sensitive to Cefurexime as well.
[2016-12-12 14:23] VITALS: BP 1118/60
--- NOTE | 2016-12-12 14:23 | CT SCAN REPORT ---
EXAMINATION: CT CHEST WITHOUT CONTRAST CLINICAL INFORMATION: Lung disease. Klebsiella pneumonia. COMPARISON: Multiple priors, most recent chest radiograph dated 12/10/2016. TECHNIQUE: Multidetector volumetric CT imaging of the chest was done. Axial MIP volume rendering provided. Sagittal and coronal reformatted images were obtained. DLP: 172.44 mGy-cm FINDINGS: GEOSPATIAL SPECIALIST: Unremarkable. LUNGS: The lungs are clear with no evidence of inflammation or nodules. There is no airspace consolidation. There is mild focal thinning along the left pleural fissure on series 2 image 26-30. MEDIASTINUM: There are scattered subcentimeter mediastinal lymph nodes. PLEURA: There is no pleural effusion. No pleural mass or thickening. AXILLA: No lymphadenopathy. UPPER ABDOMEN: Unremarkable. OSSEOUS STRUCTURES: There is thoracic levoscoliosis with an exaggerated kyphosis and associated degenerative changes at the anterior mid thoracic vertebrae. There is a large Schmorl's node within the superior endplate of T9. IMPRESSION: 1. No airspace consolidation. Mild focal pleural thickening along the left pleural fissure. 2. Thoracic levoscoliosis and exaggerated kyphosis with associated degenerative changes.
[2016-12-12 21:49] VITALS: BP 102/60
[2016-12-13 07:44] VITALS: BP 120/80
--- NOTE | 2016-12-13 08:14 | PN- Housestaff ---
SAMIR JARAMILLO,ALLAN 12/13/16 0814: Subjective Follow-up For: Acute hypoxic respiratory failure CAP/COPD Subjective: Patient seen and examined. He is seen sitting upright in bed resting comfortably. He appears to be in no acute distress. He reports that he slept well and is requesting to be discharged. He is breathing well and denies any new subjective complaints. Additionally he denies any headache, fever, chills, chest pain, shortness of breath, nausea, vomiting, diarrhea. No overnight events reported. Review of Systems Constitutional: Reports: see HPI. Objective Last 24 Hrs of Vital Signs/I&O Vital Signs Date Time Temp Pulse Resp B/P B/P Pulse O2 O2 Flow FiO2 Mean Ox Delivery Rate 12/13 0744 97.6 60 20 120/80 95 Room Air 12/12 2149 97.8 66 20 102/60 95 Intake & Output 12/13 1600 12/13 0800 12/13 0000 Intake Total 500 130 490 Output Total Balance 500 130 490 Intake, IV 10 10 Intake, Oral 500 120 480 Physical Exam General Appearance: Alert, Oriented X3, Cooperative, No Acute Distress Other Physical Findings: General- well developed, well nourished middle aged man in no acute distress HEENT- NCAT, PERRL, EOMI, anicteric sclera CVS- S1, S2 w/o m/g/r Resp- diminished bibasilar airflow w/o any obvious rhonchi/wheezing/crackles GI- Soft, nontender, nondistended, bowel sounds intact Neuro- Awake and alert, CN II - XII grossly intact Ext- normal pulses, no cyanosis/clubbing/edema Current Medications: Current Medications Sig/Manish Start time Last Medication Dose Route Stop Time Status Admin Acetaminophen 650 MG Q6P PRN 12/10 0430 DCD PO Albuterol Sulfate 2 PUF Q4P PRN 12/10 0845 DCD INH Budesonide/ 2 PUF BID 12/13 0000 DCD Formoterol Fumarate INH 12/27 2359 Cefuroxime Sodium 500 MG Q12 12/11 1000 DCD 12/13 PO 0929 Enoxaparin Sodium 40 MG DAILY 12/10 1000 DCD 12/13 SC 0929 Guaifenesin 600 MG Q12 12/10 1000 DCD 12/13 PO 0928 Nicotine 21 MG DAILY 12/10 1000 DCD 12/13 TOP 0928 Prednisone 40 MG DAILY 12/11 1000 DCD 12/13 PO 0928 Assessment/Plan Assessment: He is 55-year-old man with past medical history of ? COPD (not diagnosed officially) and current every day smoker, smoking half pack per day since age of 18. He is being admitted on general medicine floor for: 1. Acute hypoxemic respiratory failure secondary to COPD exacerbation and community-acquired pneumonia * No longer requiring oxygen. Currently satting well on RA. Ambulatory sat reportedly at 94%. * Cont Ceftin Q12 PO * Sputum culture growing Klebsiella. Sensitivities pending. * CT chest without IV con to r/o underlying lung disease (CT with contrast would be a better test but patient is reportedly allergic to contrast) * Incentive spirometry * 1/2 bottles growing GPC. ID & sensitivities to follow. * DC to home with oral antibiotics today 2. Tobacco dependence * Nicotine patch 3. No insurance and primary care provider * Case management on board. Per case management it's difficult for the patient to get insurance soon so it's better to wean him off oxygen otherwise he has to pay for that. Subcutaneous Lovenox for DVT prophylaxis Regular diet Pain management pathway Full code Problem List: 1. COPD exacerbation 2. Pneumonia Pain Ratin Pain Location: None Pain Goal: Remain pain free Pain Plan: See assessment Tomorrow's Labs & Rationales: None VALARIE LANDRY MD 12/13/16 1132: Attending MD Review Statement Attending Statement Attending MD Statement: examined this patient, discuss w/resident/PA/CARAMEL COLORING OPERATOR, agreed w/resident/PA/CARAMEL COLORING OPERATOR, reviewed EMR data (avail), discussed with nursing, discussed with case mgmt Attending Assessment/Plan: Patient feels okay. He had his CT chest yesterday but it was done without IV contrast as the pt has an allergy to iodine. Nonetheless it didn't show any mass or opacity. He is a 55-year-old active tobacco user, presumed COPD here with a gram-negative bronchitis, suspected pneumonia. He is responding well to the by mouth cefuroxime. The blood culture shows a coag negative staph which is a contaminant. The Klebsiella in the sputum is sensitive to cephalosporins and the plan is to discharge him to finish his entire course. He'll also go on a prednisone taper. Tobacco cessation counseled at length. He is uninsured so we will talk to management about the indigent meds program to give him 2 weeks with meds to go home with.
[2016-12-13] MEDS ORDERED: SYMBICORT 16010.2 GM INH (10:04)
[2016-12-13] MEDS ORDERED: CEFUROXIME250 M1 PO (10:05)
== END 2016-12-13 13:36 | DRG 133 ==
LOC: ERH 00:36 → ERHI 02:09 → 1NO 02:09 → ENRESERV 03:19 → 1NO 03:39 → 2NA 12-11 21:29 → ENPENDDIS 12-13 10:07 → 2NA 12-13 13:36
PROVIDERS: Internal Medicine Cardiovascular Disease; Pediatrics; ADMIT Student in an Organized Health Care Education/Training Program
DX: J96.01 Acute respiratory failure with hypoxia (principal); J18.9 Pneumonia, unspecified organism; J44.1 Chronic obstructive pulmonary disease with (acute) exacerbation; F17.210 Nicotine dependence, cigarettes, uncomplicated
CPT/HCPCS: 1NP; 2NASP; 87040; 87070; 87147; 87449; 87450; 93005; 93010; 96374; 96375; J0456; J0696; J1650; J2920; J3490; J7040

== ENCOUNTER 2018-04-18 08:51 | Emergency (ER) | payer OTHER ==
[~2018-04-18] VITALS: Ht 165.1 cm; Wt 59.0 kg
[~2018-04-18 08:51] MED LIST: AZITHROMYCIN500 M3 PO; BENZONATATE100 M1 PO; CEFUROXIME250 M1 PO; CEFUROXIME500 MG PO; GUAIFENESIN DM S5 ML PO; LEVAQUIN500 M1 PO; PREDNISONE10 M1 PO; PREDNISONE10 M2 PO; PREDNISONE50 M1 PO; PROAIR HFA8.5 GM INH; PROVENTIL HFA6.7 GM INH; SPIRIVA18 MCG INH; SYMBICORT 16010.2 GM INH; VENTOLIN HFA18 GM INH
--- NOTE | 2018-04-18 09:01 | ED INFLUENZA/URI COMPLAINT ---
History of Present Illness General Chief Complaint: Upper Respiratory Sx/Fever Stated Complaint: COUGH CONGESTION XS 1 WEEK Source: patient Exam Limitations: no limitations Vital Signs & Intake/Output Vital Signs & Intake/Output Vital Signs Date Time Temp Pulse Resp B/P B/P Pulse O2 O2 Flow FiO2 Mean Ox Delivery Rate 04/18 1027 98.4 76 18 126/84 96 Room Air 04/18 0901 98 Room Air 04/18 0855 98.6 93 18 110/73 97 Room Air Room Air Allergies Coded Allergies: iodine (Severe, HIVES 12/10/16) Penicillins (Intermediate, RASH 12/10/16) Reconcile Medications Albuterol Sulfate (Ventolin Hfa) 90 MCG HFA.AER.AD 2 PUF INH Q4-6 PRN PRN wheezing Azithromycin (Zithromax Tri-Jose) 500 MG TABLET 1 TAB PO DAILY bronchitis, pna Azithromycin 500 MG TABLET 1 TAB PO DAILY Pneumonia Benzonatate 100 MG CAPSULE 1 CAP PO TID cough Budesonide/Formoterol Fumarate (Symbicort 160-4.5 Mcg Inhaler) 160 MCG-4.5 MCG/ ACTUATION HFA.AER.AD 2 PUF INH BID copd Cefuroxime Axetil (Cefuroxime) 500 MG TABLET 1 TAB PO BID Pneumonia Guaifenesin/Dextromethorphan (Guaifenesin Dm Syrup) 100 MG-10 MG/5 ML SYRUP 10 ML PO Q4P PRN COUGH Methylprednisolone. (Medrol) 4 MG TAB.DS.PK 1 DP PO AD bronchitis 6 on day 1 then reduce by one tablet daily until gone Prednisone 10 MG TAB.DS.PK 1 TAB PO DAILY SOB 40 mg day one 30 mg day 2 20 mg day 3 10 mg day 4 half a tab ( 5 mg ) for two days stop taking prednisone afterward Tiotropium [place] (Spiriva) 18 MCG CAP.W.DEV 1 CAP INH DAILY COPD Triage Note: PT TO ED WITH C/O COUGH CONGESTION FOR A FEW DAYS, TAKING INHALER, WITH FAIR EFFECT. "ALMOST OUT OF INHALER". Triage Nurses Notes Reviewed? yes Onset: Last week Duration: changing over time, getting worse Timing: remote history Severity: mild Associated Symptoms: nasal congestion, nasal drainage, wheezing HPI: 57-year-old male with history of COPD presents emergency department reporting 1 week history of coughing, wheezing, nasal congestion and rhinorrhea. Patient uses a Symbicort inhaler daily. He has tried using Vicks vapor rub over the last week with no relief of symptoms. He reports productive cough with clear sputum, sometimes light green. He reports prior history of smoking however nothing recent. He denies any other medical conditions. He does report having chills last week but nothing since then. He denies any headache, fever, nausea, vom, diarrhea. Patient sees Dr. Mccray for pulm, has routine scheduled appt this upcoming week. Past History Travel History Traveled to [place] past 21 day No Medical History Any Pertinent Medical History? see below for history Neurological: NONE EENT: NONE Cardiovascular: NONE Respiratory: COPD/emphysema suspicious Gastrointestinal: NONE Hepatic: NONE Renal: NONE Musculoskeletal: NONE Psychiatric: NONE Endocrine: NONE Blood Disorders: NONE Cancer(s): NONE COMPENSATION AND HRIS ANALYST/Reproductive: TESTICLE REMOVAL History of MRSA: No History of VRE: No History of CDIFF: No Surgical History Surgical History: none Psychosocial History Who do you live with Family Services at Home None What is your primary language Bhutanese Tobacco Use: Quit >30 days ago ETOH Use: denies use Illicit Drug Use: denies illicit drug use Family History Family History, If Any: MOTHER (FATHER ( at 42, knee replacement complicated by blood clot.). Hx Contributory? No Review of Systems Review of Systems Constitutional: Reports: see HPI. EENTM: Reports: see HPI. Respiratory: Reports: see HPI. Cardiovascular: Reports: no symptoms. GI: Reports: no symptoms. Genitourinary: Reports: no symptoms. Musculoskeletal: Reports: no symptoms. Skin: Reports: no symptoms. Neurological/Psychological: Reports: no symptoms. Hematologic/Endocrine: Reports: no symptoms. Immunologic/Allergic: Reports: no symptoms. All Other Systems: Reviewed and Negative Physical Exam Physical Exam General Appearance: well developed/nourished, no apparent distress, alert, awake , comfortable Head: atraumatic, normal appearance Eyes: Bilateral: normal appearance, EOMI. Ears, Nose, Throat: normal ENT inspection, moist mucous membrane, hearing grossly normal, Tympanic normal, pharynx normal, nasal congestion Neck: normal inspection, supple, full range of motion Respiratory: chest non-tender, no respiratory distress, wheezing (all lung miller) Cardiovascular: regular rate/rhythm, normal peripheral pulses Extremities: normal inspection, normal range of motion Neurologic/Psych: no motor/sensory deficits, awake, alert, oriented x 3, normal mood/affect Skin: intact, normal color, warm/dry Core Measures Sepsis Present: No Sepsis Focused Exam Completed? No Progress Differential Diagnosis: pneumonia, sinusitis, COPD exacerbation, bronchitis Plan of Care: Orders Procedure Date/time Status XRY-CHEST XRAY, TWO VIEWS 04/18 908 Active 57 year old male with history of COPD presented to this ED with 1 week productive cough, wheezing, nasal congestion and rhinorrhea. Afebrile. CXR unremarkable. Improvement with duoneb. Likely bronchitis. Sending patient with zpak and medrol dose jose to prevent pna. Advised to f/u at routine appt this week with Dr. Mccray, increase fluids, f/u in ED with new or worsening symptoms. Seen and evaluated by Sravanthi Moran PA-C. Diagnostic Imaging: Viewed by Me: Radiology Read. Discussed w/RAD: Radiology Read. Radiology Impression: PATIENT: ANU YAN PRESENT AGE: 57 PATIENT ACCOUNT NO: [id number] : 62 LOCATION: [facility] ORDERING PHYSICIAN: Pepe Milton MD SERVICE DATE: 04/18/18 EXAM TYPE: RAD - XRY-CHEST XRAY, TWO VIEWS EXAMINATION: XR CHEST CLINICAL INFORMATION: Cough, congestion. COMPARISON: Chest radiograph 06/14/[address] chest 12/01/2017. TECHNIQUE: 2 views of the chest were obtained. FINDINGS: Cardiac and mediastinal silhouettes are normal. The lungs are significantly hyperinflated in keeping with COPD. Mild linear scarring is seen in the right middle lobe laterally. No focal consolidation, atelectasis or pneumothorax. No pleural effusion. Moderate thoracic kyphosis and degenerative change. IMPRESSION: Hyperinflation. No acute consolidation or atelectasis. DICTATED BY: Reinaldo Bray MD DATE/TIME DICTATED:04/18/18947 SENSITIZER:BROOK DATE/TIME TRANSCRIBED:04/18/18947 CONFIDENTIAL, DO NOT COPY WITHOUT APPROPRIATE AUTHORIZATION. <Electronically signed in Other Vendor System> SIGNED BY: Reinaldo Bray MD 04/18/18952 Initial ED EKG: none Departure Departure Disposition: HOME OR SELF CARE Condition: Stable Clinical Impression Primary Impression: Acute bronchitis with COPD Referrals: Patient Has No Primary Care Dr (PCP/Family) Additional Instructions: Follow up with Dr Mccray for routine visit as scheduled this week. Continue taking Symbicort inhaler as directed. Take medrol dose pack as directed. Take antibiotics as prescribed. Increase fluid intake. Return to the emergency department with any new or worsening symptoms. Departure Forms: Customer Survey General Discharge Information Prescriptions: Current Visit Scripts Methylprednisolone. (Medrol) 1 DP PO AD #1 DP 6 on day 1 then reduce by one tablet daily until gone Azithromycin (Zithromax Tri-Jose) 1 TAB PO DAILY #3 TAB
--- NOTE | 2018-04-18 09:53 | RADIOLOGY REPORT ---
EXAMINATION: XR CHEST CLINICAL INFORMATION: Cough, congestion. COMPARISON: Chest radiograph 06/14/[address] chest 12/01/2017. TECHNIQUE: 2 views of the chest were obtained. FINDINGS: Cardiac and mediastinal silhouettes are normal. The lungs are significantly hyperinflated in keeping with COPD. Mild linear scarring is seen in the right middle lobe laterally. No focal consolidation, atelectasis or pneumothorax. No pleural effusion. Moderate thoracic kyphosis and degenerative change. IMPRESSION: Hyperinflation. No acute consolidation or atelectasis.
[2018-04-18] MEDS ORDERED: MEDROL4 M2 PO (10:19)
[2018-04-18] MEDS ORDERED: ZITHROMAX TRI-500 M1 PO (10:19)
[2018-04-18 10:27] VITALS: BP 126/84
== END 2018-04-18 10:28 ==
LOC: ERH 08:51
DX: J44.1 Chronic obstructive pulmonary disease with (acute) exacerbation (principal); Z87.891 Personal history of nicotine dependence
CPT/HCPCS: 1263; 71046